=== PATIENT | male | born 1955 | race Caucasian/White ===

== ENCOUNTER 2016-09-25 09:32 | Emergency (ER) | payer OTHER ==
[~2016-09-25] VITALS: Ht 177.8 cm; Wt 81.8 kg
[~2016-09-25 09:32] MED LIST: ASPI-492 PO; ATOR80TA75 PO; AZIT250T94 PO; METO-448 PO; UDROBDM PO
[2016-09-25 09:34] VITALS: Ht 177.8 cm; Wt 81.8 kg
[2016-09-25] MEDS ORDERED: ASPIRIN 325 MG TAB PO STA (10:16)
[2016-09-25] MEDS ORDERED: morphine 2 MG INJ IV STA (10:16)
[2016-09-25] MEDS ORDERED: LOSA100T7 PO (10:46)
[2016-09-25] MEDS ORDERED: OMEG-80 PO (10:47)
[2016-09-25] MEDS ORDERED: CARV25TA79 PO (10:48)
[2016-09-25] MEDS ORDERED: ICOS1CAP PO ×2 (10:48→10:50)
[2016-09-25 10:50] LABS: BASOPHILS % 0.3 % (0.0-2.0); EOSINOPHILS # 0.1 10^3/ul (0.0-0.5); EOSINOPHILS % 2.9 % (0.0-7.0); HEMATOCRIT 34.6 % (42.0-52.0); HEMOGLOBIN 11.2 g/dl (14.0-18.0); LYMPHOCYTES # 1.7 10^3/ul (0.8-2.9); LYMPHOCYTES % 33.3 % (15.0-51.0); MEAN CORPUSCULAR HEMOGLOBIN 30.3 pg (29.0-33.0); MEAN CORPUSCULAR HGB CONC 32.5 g/dl (32.0-37.0); MEAN CORPUSCULAR VOLUME 93.2 fl (82.0-101.0); MEAN PLATELET VOLUME 8.9 fl (7.4-10.4); MONOCYTE # 0.3 10^3/ul (0.3-0.9); MONOCYTES % 6.1 % (0.0-11.0); NEUTROPHIL # 2.8 10^3/ul (1.6-7.5); NEUTROPHILS % 57.4 % (39.0-77.0); PLATELET COUNT 173 10^3/UL (140-440); RED BLOOD COUNT 3.71 10^6/ul (4.70-6.10); RED CELL DISTRIBUTION WIDTH 17.4 % (11.5-14.5)
[2016-09-25 10:55] LABS: CONDITION 1; LH ANALYZER COMMENTS 1; NUCLEATED RED BLOOD CELLS # 0.1 10^3/ul (0.0-0.0)
[2016-09-25 10:57] LABS: POTASSIUM 4.6 mmol/L (3.5-5.1)
[2016-09-25 11:00] LABS: CREATININE 1.22 mg/dl (0.61-1.24)
[2016-09-25 11:01] LABS: CALCIUM 8.8 mg/dl (8.4-10.2); INR 1.01; PROTIME 13.3 Sec (12.2-14.2)
[2016-09-25 11:02] LABS: PARTIAL THROMBOPLASTIN TIME 31.2 Sec (25.0-35.0)
--- NOTE | 2016-09-25 11:03 | RADRPT ---
PROCEDURE: XR Chest. CLINICAL INDICATION: Chest pain TECHNIQUE: AP view of the chest was obtained. COMPARISON: 09/11/2013 FINDINGS: There are sternotomy wires and mediastinal clips. There are atherosclerotic calcifications of the th oracic aorta. The cardiomediastinal silhouette is within normal limits. The lungs are clear. No pleural effusion or pneumothorax is seen. IMPRESSION: No evidence of active cardiopulmonary disease. RPTAT: VV .Panda Sims MD, MD Date Time Electronically viewed and signed by .Panda Sims MD, MD on 09/25/2016 11:03 .O/
[2016-09-25 11:11] LABS: TROPONIN-I 0.013 ng/ml (0.00-0.12)
[2016-09-25 13:30] VITALS: BP 133/79; PULSE 63; RESP 18; TEMP 98.3
--- NOTE | 2016-09-25 20:59 | ERD ---
DATE OF SERVICE: HISTORY OF PRESENT ILLNESS: A 61-year-old male presented to the emergency room after he was at his clinic when he suddenly experienced an episode of near syncope where he felt very weak, tired and lightheaded. According to a note from his physician, he was unable to open his eyes for a few seconds on command. The patient states that he is feeling much better now but also did have right-sided chest pain. He has a history of coronary artery bypass grafting. He states that the pain is significantly diminished now. REVIEW OF SYSTEMS: Ten-point review of systems negative except as in HPI. PAST MEDICAL HISTORY: Coronary artery disease, hypertension, hypercholesterolemia, myocardial infarction x2. PAST SURGICAL HISTORY: CABG 9 years ago. SOCIAL HISTORY: Occasionally uses tobacco, occasionally drinks socially and does not use any other drugs. FAMILY HISTORY: Noncontributory. PHYSICAL EXAMINATION: VITAL SIGNS: Temperature 98.4, pulse 70, blood pressure 106/63, respirations 18 , oxygen saturation 99% on room air. GENERAL: No acute distress. HEENT: Normocephalic, atraumatic. CARDIAC: Regular rate and rhythm. No murmurs. LUNGS: Clear to auscultation bilaterally. ABDOMEN: Soft, nontender, nondistended. No mass. EXTREMITIES: No cyanosis, clubbing or edema. SKIN: No rashes or other lesions. NEUROLOGIC: Alert, oriented x3. No cranial nerve deficits in nerves II-XII. No cerebellar deficits. Extraocular muscles intact. Pupils equal and reactive to light. Normal gait. EXTREMITIES: No cyanosis, clubbing or edema. VASCULAR: Distal pulses intact to all 4 extremities. DIAGNOSTIC DATA: EKG interpretation: Normal sinus rhythm, rate of 62, normal axis. T-wave inversions in lateral leads present on patient's previous EKG, also with T-wave inversions in inferior leads concerning for ischemia. basketball coach interpretation: Normal sinus rhythm without arrhythmia. Laboratory: CBC significant only for mildly depressed hemoglobin of 11.2 with normocytic anemia. Coagulation studies within normal limits with an INR of 1. Troponin 0.013. BNP is 79. Chest x-ray interpretation: I see no acute process. Previous sternotomy wires seen. No infiltrate, no pneumothorax, no pulmonary edema. EMERGENCY DEPARTMENT COURSE AND MEDICAL DECISION MAKING: The patient had a concerning near-syncopal episode during which there was reported hypotension. He was initially mildly hypotensive on presentation to the emergency room, although this resolved on subsequent rechecks. The patient had negative troponin and EKG with only minor changes compared to prior EKG, but there is only a single troponin. Acute coronary syndrome is not completely ruled out. Congestive heart failure is unlikely with a BNP that is low as well as no pulmonary edema or vascular congestion on a chest x-ray. The patient's chest pain did resolve. He was given 325 mg of aspirin as well as some normal saline IV fluid. With the episode as well as his history of 2 previous MIs as well as multiple risk factors including currently smoking cigarettes, I believe that the patient should be admitted for further monitoring and trending of troponins. However, the patient said that he felt well now and wanted to go home. I spoke to him with a bedside [place] childcare attendant, and he stated that he understands the risk and he will sign a form acknowledging risk that he could possibly . I am recommending that he follow up with his primary care doctor tomorrow and get a referral for outpatient echocardiogram as soon as possible and return to the ER for any concerning changes. The patient was fully ambulatory, did come to the desk and thank us for our care after signing his AMA form. DISCHARGE DIAGNOSES: 1. Near syncope. 2. Chest pain. 3. Normocytic anemia. 4. Hypotension. DISPOSITION: Against medical advice in stable condition. Dictated By: SONYA REDDY/RUSTY Conf#: [id number] DID#: [id number]
== END 2016-09-25 13:30 | disposition left against medical advice (07) ==
LOC: E/R 09:32
DX: R55 Syncope and collapse (principal); R07.9 Chest pain, unspecified; D64.9 Anemia, unspecified; I10 Essential (primary) hypertension; I25.10 Atherosclerotic heart disease of native coronary artery without angina pectoris; F17.210 Nicotine dependence, cigarettes, uncomplicated; I95.9 Hypotension, unspecified; Z95.1 Presence of aortocoronary bypass graft
CPT/HCPCS: 71010; 80048; 83880; 84484; 85025; 85610; 85730; 93005; J2270; Z7610; 36415; 96374